=== PATIENT | male | born 1995 | race Caucasian/White ===

== ENCOUNTER → 2021-05-05 11:53 | Outpatient (CLI) | payer BC, SELFPAY ==
--- NOTE | 2021-05-05 12:03 | DI.RAD.S_ITS ---
PROCEDURE: XR LUMBAR SPINE 2-3V INDICATIONS: BACK PAIN TECHNIQUE: 3 views of the lumbar spine were acquired. COMPARISON: None. FINDINGS: Bones: 5 [id number] vertebrae are present. Normal lumbar vertebral body height and alignment. No suspicious lytic or blastic osseous lesion. No significant degenerative change. No evidence of pars defect. Soft tissues: Overlying bowel gas pattern is normal. No suspicious soft tissue calcifications. IMPRESSION: No findings to explain back pain. Dictated by: Ayaan Chang M.D. on 05/05/2021 at 12:57 Approved by: Ayaan Chang M.D. on 05/05/2021 at 12:58
== END ==
PROVIDERS: Referring Provider Chiropractor; Visit Provider Chiropractor
DX: M51.26 Other intervertebral disc displacement, lumbar region (principal); M54.9 Dorsalgia, unspecified
CPT/HCPCS: 72100